=== PATIENT | male | born 1975 | race Caucasian/White ===

== ENCOUNTER 2020-05-12 17:42 | Emergency (ER) | payer MEDICAID ==
[~2020-05-12] VITALS: Ht 175.3 cm; Wt 104.5 kg
[~2020-05-12 17:42] MED LIST: GABA-1201 PO; IBUP-2280 PO; OMEP20CA4 PO
[2020-05-12 20:45] VITALS: BP 131/81
== END 2020-05-12 21:08 | disposition home or self-care (01) ==
LOC: EMS 17:42
DX: S82.142A Displaced bicondylar fracture of left tibia, initial encounter for closed fracture (principal); F17.210 Nicotine dependence, cigarettes, uncomplicated; W19.XXXA Unspecified fall, initial encounter; Y93.89 Activity, other specified; Y92.89 Other specified places as the place of occurrence of the external cause; Y99.8 Other external cause status
CPT/HCPCS: 29505; 73503; 73552

== ENCOUNTER 2020-07-31 21:40 | Emergency (ER) | payer MEDICAID ==
[~2020-07-31] VITALS: Ht 175.3 cm; Wt 107.3 kg
[2020-07-31] MEDS ORDERED: IBUPROFEN 800 MG TABLET PO ONE (23:00)
[2020-08-01 00:04] VITALS: BP 135/69
== END 2020-08-01 00:41 | disposition home or self-care (01) ==
LOC: EMS 21:42
DX: S13.9XXA Sprain of joints and ligaments of unspecified parts of neck, initial encounter (principal); S40.812A Abrasion of left upper arm, initial encounter; S80.212A Abrasion, left knee, initial encounter; S39.92XA Unspecified injury of lower back, initial encounter; K21.9 Gastro-esophageal reflux disease without esophagitis; G89.29 Other chronic pain; F17.210 Nicotine dependence, cigarettes, uncomplicated; V23.4XXA Motorcycle driver injured in collision with car, pick-up truck or van in traffic accident, initial encounter; Y93.55 Activity, bike riding; Y92.89 Other specified places as the place of occurrence of the external cause; Y99.8 Other external cause status
CPT/HCPCS: 72052; 72220; Z7502; Z7610